=== PATIENT | female | born 1990 | race Caucasian/White ===

== ENCOUNTER 2018-10-02 20:20 | Emergency (ER) | payer BC ==
[~2018-10-02] VITALS: Ht 160 cm; Wt 77.5 kg
[~2018-10-02 20:20] MED LIST: UNK BIRTH CONTROL
[2018-10-02 20:25] VITALS: BP 119/70; PULSE 62; RESP 18; Ht 160 cm; Wt 77.5 kg
[2018-10-02] MEDS ORDERED: KETOROLAC 60 MG INJ IM STA (21:03)
--- NOTE | 2018-10-02 21:09 | ERD ---
ER Documentation Chief Complaint Chief Complaint L ANKLE PAIN S/P EXERCISE YESTERDAY HPI Patient is a 27 years old female presenting to the clinic with left foot pain since yesterday. Patient denies trauma/ijury/fall, stating that she did her routine exercise at the gym which was followed my left foot pain during her treadmill workout. Patient described her pain as a "rock inside her shoe" and decided to inspect her feet. Patient did not find any abnormalities and continued with the treadmill. Patient reports pain worsened after 5 minutes and ceased all activities. Patient admits to taking OTC ibuprofen without resolution. Patient reports pain is worse with activity and admits to using mountain shoes during workout. ROS All systems reviewed and are negative except as per history of present illness. Medications Home Meds Active Scripts Meloxicam* (Meloxicam*) 7.5 Mg Tablet, 7.5 MG PO DAILY, #30 TAB Prov:KYE MARTINS PA-C 10/02/18 Reported Medications [Unk Control] No Conflict Check 03/21/12 Allergies Allergies: Coded Allergies: iodine (Verified Allergy, Unknown, 10/02/18) PMhx/Soc History of Surgery: Yes (L [id number], L WRIST SX) Anesthesia Reaction: No Hx Neurological Disorder: No Hx Respiratory Disorders: No Hx Cardiac Disorders: No Hx Psychiatric Problems: No Hx Miscellaneous Medical Probl: No Hx Alcohol Use: No Hx Substance Use: No Hx Tobacco Use: No Smoking Status: Never smoker Physical Exam Vitals Vital Signs Date Temp Pulse Resp B/P (MAP) Pulse Ox O2 O2 Flow FiO2 Time Delivery Rate 10/02/18 98.0 62 18 119/70 98 20:25 (86) Physical Exam Const: No acute distress Head: Atraumatic Resp: Clear to auscultation bilaterally Cardio: Regular rate and rhythm, no murmurs Neur: Awake and alert Psych: Normal Mood and Affect Left foot Exam: Tenderness to palpation on lateral foot, plantar area, and navicular/talus with mild swelling. No trauma or injury noted. Skin intact. Results 24 hrs Laboratory Tests Test 10/02/18 21:14 POC Beta HCG, Qualitative NEGATIVE Current Medications Medications Dose Sig/Brooke Start Time Status Last (Trade) Ordered Route PRN Stop Time Admin Dose Reason Admin Ketorolac 60 mg ONCE STAT 10/02/18 DC 10/02/18 Tromethamine IM 21:03 10/02/18 21:20 (Toradol) 21:05 Procedures/MDM Patient was seen and evaluated for left foot pain. Left foot X-Ray revealed no fractures. Corey wrap was applied followed by crutches. Patient was advised to avoid weight bearing activity of left foot x 1 week. Departure Diagnosis: Primary Impression: Left foot pain Condition: Stable Patient Instructions: Contusion, Foot Referrals: [facility] Additional Instructions: Patient advised to return to the ED immediately for new or worsening symptoms. Patient advised to follow up with primary care provider in the next 24-48 hours. Patient verbalized understanding and agrees with treatment plan and course of action. If patient has no primary care they may follow up with [facility] [address] [place] [address] [id number] [facility] [address] [place] [address] or [facility] [address] [place] [address] KYE MARTINS PA-C Oct 02, 2018 21:09
[2018-10-02] MEDS ORDERED: MELO7.5T38 PO (21:40)
== END 2018-10-02 22:18 | disposition home or self-care (01) ==
LOC: FTE 20:20
DX: M79.672 Pain in left foot (principal)
CPT/HCPCS: 73630; 81025; 96372; 99284; J1885